=== PATIENT | female | born 1945 | race Caucasian/White ===

== ENCOUNTER 2018-03-12 11:23 | Emergency (ER) | payer MEDICARE ==
[~2018-03-12] VITALS: Ht 161.3 cm; Wt 100.7 kg
[~2018-03-12 11:23] MED LIST: ALLOPURINOL100 MG PO; AMBIEN5 MG PO; ATORVASTATIN CA20 MG PO; BENICAR HCT 401 EAC1 PO; BENICAR HCT 401 EACH PO; COUMADIN7.5 MG PO; CYMBALTA30 MG PO; LEVOTHYROXINE137 MCG PO; LEVOTHYROXINE50 MCG PO; METOPROLOL SUCC25 MG PO; TEGRETOL200 MG PO; ULTRAM50 MG PO
--- OUTSIDE RECORDS SUMMARY | 2018-03-12 11:26 | XMS REPORT | Clinical Summary ---
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 Role Phone RonaJitendraDavidyaBrooke olivares PCP Unavailable Allergies Comments Active Allergy Reactions Severity Noted Date No Known Drug Allergies 09/06/2015 Medications End Date Status Medication Sig Dispensed Refills Start Date Active atorvastatin (LIPITOR) 20 TK 1 T PO D 1 MG tablet 6 Active budesonide EC (ENTOCORT 0 EC) 3 mg 24 hr capsule 6 Active carBAMazepine (TEGretol) TK 3 TS PO 1 200 mg tablet QHS 6 Active cephalexin (KEFLEX) 500 TK 1 C PO TID 0 08/07/ MG capsule FOR 10 DAYS 6 Active DULoxetine (CYMBALTA) 30 TK ONE C PO D 1 MG capsule 6 Active enoxaparin (LOVENOX) 100 0 mg/mL syringe 6 Active HYDROcodone-acetaminophen TK 1 T PO Q 4 0 (NORCO 10-325) 10-325 mg TO 6 H PRN P 6 per tablet Active levothyroxine (SYNTHROID, 0 LEVOTHROID) 175 MCG 6 tablet Active metoprolol succinate XL 0 (TOPROL-XL) 25 MG 24 hr 6 tablet Active BENICAR HCT 40-25 mg per TK 1 T PO QD 1 tablet 6 Active warfarin (COUMADIN) 5 MG 3 tablet 6 Active Problems Problem Noted Date Rash 09/25/2015 S/P hip replacement 08/31/2015 Overview: 5 weeks s/p total hip replacement, doing well. Pt will continue with local wound care, and increase activity . Can d/c replacement precautions at 6wks. Weight gain 01/29/2015 Depression 01/29/2015 Swollen ankles 01/29/2015 SOB (shortness of breath) 01/29/2015 Heat intolerance 01/29/2015 Diarrhea 01/29/2015 Dizziness 01/29/2015 Family History Medical History Relation Name Comments Mental illness Child Heart attack Father Emphysema Mother Relation Name Status Comments Child Father Mother Social History Date Tobacco Use Types Packs/Day Years Used Never Smoker Smokeless Tobacco: Never Used Tobacco Cessation: Counseling Given: No Alcohol Use Drinks/Week oz/Week Comments No Sex Assigned at Date Recorded Not on file Industry Job Start Date Occupation Not on file Not on file Not on file Travel End Travel History Travel Start No recent travel history available. Last Filed Vital Signs Not on file Plan of Treatment Health Maintenance Due Date Last Done Comments BREAST CANCER SCREENING 1996 COLON CANCER SCREENING 1996 SHINGLES VACCINES (1 of 1996 2) PNEUMOCOCCAL 08/25/2011 POLYSACCHARIDE VACCINE AGE 65 AND OVER PNEUMOCOCCAL-13 08/25/2011 INFLUENZA VACCINE 10/14/2017 Results Not on fileafter 03/11/2017 Insurance Payer Benefit Subscriber ID Type Phone Address Plan / Group MEDICARE MEDICARE xxxxxxxxxx Medicare [place], [place] PART A AND B Advance Directives Patient has advance care planning documents on file. For more information, rafa joseph contact: Tres Hawkins [address] [place] [phone]
--- OUTSIDE RECORDS SUMMARY | 2018-03-12 11:27 | XMS REPORT ---
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 Allergies, Adverse Reactions, Alerts Allergy Name Allergy Type Status Severity Reaction(s) Onset Date Inactive Date Treating Clinician Comments No Known Allergies DA Active U 2013-06-16 00:00:00 Medications This patient has no known medications. Results Test Description Test Time Test Comments Text Results Atomic Results Result Comments CHEST 2 VIEWS 2018-01-22 11:53:00 [place] [id number] Patient Name: PATRICK CASAS MR #: [id number] : 1945 Age/Sex: 72/F Req #: [id number] Adm Physician: Ordered by: TOMÁS VALLES MD Report #: [id number] Location: OR Room/Bed: Procedure: [id number] DX/CHEST 2 VIEWS Exam Date: Exam Time: REPORT STATUS: Signed EXAMINATION: PA and lateral views of the chest. COMPARISON: None CLINICAL HISTORY: Preadmission, cholecystectomy DISCUSSION: Lines/tubes: None. Lungs: The lungs are well inflated and clear. No pneumonia or pulmonary edema. Pleura: No pleural effusion or pneumothorax. Heart and mediastinum: The cardiomediastinal silhouette is normal. Bones and soft tissues: No acute bony abnormalities. Age-indeterminate lower thoracic compression deformity. IMPRESSION: No acute cardiopulmonary abnormalities. Signed by: Dr. Lily Lyons M.D. on 01/22/2018 11:54 AM Dictated By: LILY LYONS MD [id number] Transcribed By: ASHLEY on 01/22/18 1158 COPY TO: TOMÁS VALLES MD
[2018-03-12 12:26] LABS: BASOPHILS # (AUTO) 0.1 (0.0-0.1); BASOPHILS % 0.7 % (0.0-1.0); EOSINOPHILS # (AUTO) 0.2 (0.0-0.4); EOSINOPHILS % 1.5 % (0.0-6.0); HEMATOCRIT 30.9 % (34.2-44.1); HEMOGLOBIN 10.1 g/dL (12.0-16.0); LYMPHOCYTES # (AUTO) 1.7 (1.0-3.2); LYMPHOCYTES % 11.8 % (18.0-39.1); MEAN CORPUSCULAR HEMOGLOBIN 30.5 pg (28-32); MEAN CORPUSCULAR HGB CONC 32.7 g/dL (31-35); MEAN CORPUSCULAR VOLUME 93.4 fL (81-99); MONOCYTES # (AUTO) 0.8 (0.2-0.8); MONOCYTES % 5.3 % (4.4-11.3); NEUTROPHILS # (AUTO) 11.7 (2.1-6.9); NEUTROPHILS % 79.8 % (38.7-80.0); PLATELET COUNT 397 x10e3/uL (140-360); RED BLOOD COUNT 3.31 x10e6/uL (3.6-5.1); RED CELL DISTRIBUTION WIDTH 13.5 % (11.7-14.4)
[2018-03-12 12:30] LABS: INR 1.44; PROTHROMBIN TIME 18.7 seconds (11.9-14.5)
[2018-03-12 12:31] LABS: PARTIAL THROMBOPLASTIN TIME 43.7 seconds (23.8-35.5)
[2018-03-12 12:38] LABS: ALBUMIN 3.2 g/dL (3.5-5.0); ALBUMIN/GLOBULIN RATIO 0.8 (0.8-2.0); ANION GAP 14.8 mmol/L (8-16); CREATININE, SERUM 1.61 mg/dL (0.57-1.11); MAGNESIUM 1.2 MG/DL (1.3-2.1)
[2018-03-12 12:43] LABS: POTASSIUM 2.8 mmol/L (3.5-5.1)
[2018-03-12 12:45] LABS: CREATINE KINASE MB 0.7 ng/mL (0-5.0)
[2018-03-12] MEDS ORDERED: POTASSIUM CHLORIDE 20 MEQ TAB CR PO STA (12:45)
--- NOTE | 2018-03-12 13:06 | Diagnostic Imaging Report ---
EXAMINATION: CHEST SINGLE (PORTABLE) COMPARISON: Chest radiograph 01/22/2018. FINDINGS: TUBES and LINES: None. LUNGS: Low lung volumes with mild patchy bibasilar opacities, likely atelectasis. No evidence of lobar pneumonia or pulmonary edema. PLEURA: No pleural effusion or pneumothorax. HEART AND MEDIASTINUM: The cardiomediastinal silhouette is unremarkable. BONES AND SOFT TISSUES: No acute osseous lesion. Previously noted age indeterminant lower thoracic compression deformities are not well seen on frontal radiograph. UPPER ABDOMEN: No free air under the diaphragm. IMPRESSION: No acute radiographic abnormality. Signed by: Dr. Juju Nicholas MD on 03/12/2018 1:03 PM
[2018-03-12] MEDS ORDERED: POTASSIUM CHLORIDE 10MEQ EA PO ONE (18:15)
[2018-03-12 18:23] LABS: BILIRUBIN,URINE NEGATIVE (NEGATIVE); CLARITY,URINE CLEAR (CLEAR); COLOR,URINE YELLOW (YELLOW); KETONES,URINE NEGATIVE (NEGATIVE); LEUKOCYTE ESTERASE ,URINE NEGATIVE (NEGATIVE); NITRITE,URINE NEGATIVE (NEGATIVE); PROTEIN,URINE DIPSTICK TRACE (NEGATIVE); URINE UROBILINOGEN 0.2 mg/dL (0.2 - 1)
[2018-03-12 18:26] LABS: EPITHELIAL CELLS,URINE MANY /LPF
[2018-03-12 18:27] LABS: WBC,URINE (MAN) 0-5 /HPF (0-5)
[2018-03-12 18:28] LABS: TRANSITIONAL EPI CELLS,URINE MODERATE
[2018-03-12] MEDS ORDERED: POTASSIUM CHLORIDE 20 MEQ TAB CR PO ONE (18:30)
--- NOTE | 2018-03-12 19:04 | NUR ---
Eben Foley NP ok for pt to discharge home and take 20Meq BID x10 days and follow up with PCP. Dr. Kumar evaluated pt and ok to discharge.
[2018-03-15] MEDS ORDERED: POTASSIUM CHLO10 ME1 PO (06:31)
== END 2018-03-12 19:21 | disposition home or self-care (01) ==
LOC: ER 11:23
DX: R00.2 Palpitations (principal); R53.1 Weakness; E87.6 Hypokalemia; K52.9 Noninfective gastroenteritis and colitis, unspecified; I10 Essential (primary) hypertension
CPT/HCPCS: 36415; 71045; 80053; 81001; 82550; 82553; 83735; 83880; 84484; 85025; 85610; 85730; 93005; 99283